=== PATIENT | female | born 1985 | race Caucasian/White ===

== ENCOUNTER 2017-01-08 06:57 | Inpatient (IN) | payer OTHER ==
[2017-01-08] MEDS ORDERED: ceFAZolin 2 GM in SODIUM CHLORIDE 0.9% 100 ML IVPB ONE (07:11)
[2017-01-08] MEDS ORDERED: CITRIC ACID-SODIUM CITRATE 15 ML CUP PO ONE (07:11)
[2017-01-08] MEDS ORDERED: KETOROLAC 30 MG/ML 1 ML VIAL ONE (07:23)
[2017-01-08] MEDS ORDERED: ONDANSETRON 4 MG/2 ML VIAL ONE (07:23)
[2017-01-08] MEDS ORDERED: fentaNYL (PF) 50 MCG/ML 2 ML AMP ONE (07:23)
[2017-01-08] MEDS ORDERED: NALBUPHINE 10 MG/ML AMPUL ONE (07:23)
[2017-01-08] MEDS ORDERED: OXYTOCIN 10 UNIT/ML 1 ML VIAL IM ONE (07:23)
[2017-01-08] MEDS ORDERED: MORPHINE SULFATE (PF) 0.3 MG/0.3 ML SYR ONE (07:23)
[2017-01-08] MEDS ORDERED: SIMETHICONE 80 MG CHEWABLE PO PRN (08:08)
[2017-01-08] MEDS ORDERED: ONDANSETRON 4 MG/2 ML VIAL IVP PRN (08:08)
[2017-01-08] MEDS ORDERED: NALOXONE 0.4 MG/ML 10 ML VIAL IVP PRN (08:08)
[2017-01-08] MEDS ORDERED: Acetaminophen-Codeine 300-30mg TAB PO PRN ×2 (08:08)
[2017-01-08] MEDS ORDERED: ACETAMINOPHEN TAB 325 MG TAB PO PRN (08:08)
[2017-01-08] MEDS ORDERED: METOCLOPRAMIDE 5 MG/ML 2 ML VIAL IVP PRN (08:08)
[2017-01-08] MEDS ORDERED: diphenhydrAMINE 25 MG CAP PO PRN (08:08)
[2017-01-08] MEDS ORDERED: ZOLPIDEM 5 MG TAB PO PRN (08:08)
--- NOTE | 2017-01-08 08:14 | P.HPOB ---
History of Present Illness H&P Date: 01/08/17 Chief Complaint: Vaginal bleeding This patient is a pleasant 31-year-old 3 para 1 female estimated date of confinement 01/19/2017 estimated gestational age 38-2/7 weeks who presents to labor and delivery with complaints of onset of vaginal bleeding at 5:30 this morning. Patient states she had a copious amount of bleeding in bed and then immediately came to the hospital. Patient's care has been uncomplicated. She previous section however last week she decided to proceed with a repeat . Review of Systems Constitutional: Denies chills, Denies fever Cardiovascular: Denies chest pain, Denies shortness of breath Respiratory: Denies cough Gastrointestinal: Reports heartburn Genitourinary: Reports as per HPI Menstruation: Reports amenorrhea Musculoskeletal: Denies myalgias Integumentary: Denies pruritus, Denies rash Neurological: Denies numbness, Denies weakness Past Medical History Past Medical History: Asthma Additional Past Medical History / Comment(s): hemorrhoids History of Any Multi-Drug Resistant Organisms: None Reported Past Surgical History: Section Past Anesthesia/Blood Transfusion Reactions: No Reported Reaction Past Psychological History: Anxiety Smoking Status: Former smoker Past Alcohol Use History: None Reported Additional Past Alcohol Use History / Comment(s): smoker 17 years <1/2 ppd quit 2015 Past Drug Use History: None Reported - Past Family History Mother Family Medical History: No Reported History Medications and Allergies Home Medications Medication Instructions Recorded Confirmed Type No Known Home Medications [No 01/07/17 01/07/17 History Known Home Medications] Allergies Allergy/AdvReac Type Severity Reaction Status Date / Time No Known Allergies Allergy Verified 01/07/17 14:50 Exam - OBG Physical Exam Abdomen: bowel sounds normal, no diffuse tenderness, no bruit present, no guarding noted, no hepatomegaly, no splenomegaly, no mass Vulva: both: normal Vagina: Speculum exam shows a large amount of watery bloody fluid. Cervix is closed Cervix: no lesion, no discharge Uterus: enlarged Assessment and Plan (1) Third trimester Narrative/Plan: This is a pleasant 31-year-old 3 para 1 female 38-2/7 weeks gestation with sudden onset of copious vaginal bleeding. heart tones are reassuring at this time but due to my concern for possible placental abruption proceed with immediate delivery by repeat section. Patient does understand the surgery and risks including risks of infection, bleeding, possible injury to bowel, bladder, vessels, and other organs. Patient understands risk of DVT and pulmonary embolism. All the patient's questions are answered and a written consent is obtained. Status: Acute (2) Vaginal bleeding in Status: Acute (3) Previous section complicating Status: Acute
--- NOTE | 2017-01-08 08:20 | P.OP ---
Date of Procedure: 01/08/17 Preoperative Diagnosis: #1: 38-2/7 week . #2: Vaginal bleeding, possible placental abruption. #3: Previous section. Postoperative Diagnosis: #1: Same. #2: Large placental abruption Procedure(s) Performed: Emergent repeat low transverse section Anesthesia: spinal Surgeon: David Goodson Candy Feeder #1: [address] Estimated Blood Loss (ml): 800 Pathology: other (Placenta) Condition: stable Disposition: floor Indications for Procedure: Please see dictated H&P for intimate details of this patient's admission. Brief summary this pleasant 31-year-old 3 para 1 female 38-2/7 weeks gestation admitted to labor and delivery vaginal bleeding and suspected placental abruption patient previous section at this time are recommended proceed with immediate delivery by repeat section.'s patient understands this surgery and risks. Operative Findings: This is a viable female Apgars were 5 and 10 delivery time is 0735 hours. Infant did have spontaneous respirations and good cry however of note the fluid was bloody. There was approximately 8 cm clot noted upon entering the uterine cavity consistent with an abruption. Description of Procedure: This patient has a Morales catheter placed to straight drain. She is subsequently taken to the operating room where she sat up and spinal anesthetic is administered without incident. With an adequate level of anesthesia she has abdominal prep and drape. Scalpels taken in the previous Pfannenstiel incision is incised. A second scalpel is taken down to the fascia. Fascia scored with a scalpel. Fascial incision extended bilaterally using the Vargas scissors. Fascia is dissected off the rectus muscles sharply. Rectus muscles are and the peritoneum identified and entered sharply. Peritoneal incision extended superior and inferior without difficulty. Bladder blade is then placed. Bladder peritoneum was taken off the lower uterine segment with Metzenbaum scissors. Scalpels taken low transverse uterine incision is made. Hemostat is used to enter the uterine cavity immediately is loss of a large amount of bloody fluid. Also large clot approximately 8 cm in dimensions. 70 's head was guided through the incision with fundal pressure delivered. Mouth and nares are bulb suctioned for bloody fluid. There is a loose nuchal cord. Then delivery anterior posterior shoulder and rest this infant's body. This is a vigorous viable female infant Apgars are 5 and 10. After delivery of the infant the placenta is then manually extracted intact. Of note it is partially abrupted. Uterus is then externalized and uterine incision demarcated with Jo clamps. The uterine incision is then closed using 0 Vicryl running locked fashion in 2 layers. Added [id number] stitches are also placed for assured hemostasis. With this done the bladder peritoneum was reapproximated using a 3-0 Vicryl. Excess fluid is removed from the pelvis. Uterus tubes and ovaries appear normal for term gestation. Uterus placed back into the abdomen. Parietal peritoneum was then closed using 0 Vicryl running fashion. Rectus muscles reapproximated in 0 Vicryl interrupted fashion. Fascia is then closed using 0 PDS. Fascial incision is intact and hemostatic. Subcutaneous tissues and reapproximated using 3-0 Vicryl. Skin is and closed using arpit. A sterile dressing is then applied. All counts are correct 3. There are no complications. will go to special care for observation due to the bloody fluid and mother will go to her birthing suite in satisfactory condition.
[2017-01-08 08:23] LABS: Basophils % (A) 1 %; CH 28.7; CHCM 34.1; Eosinophils # (A) 0.1 k/uL (0-0.7); Eosinophils % (A) 1 %; HCT 35.4 % (34.0-46.0); HDW 3.54; HGB 11.7 gm/dL (11.4-16.0); Luc # (Auto) 0.17; Luc % (Auto) 2; Lymphocytes # (A) 1.6 k/uL (1.0-4.8); Lymphocytes % (A) 19 %; MCH 28.1 pg (25.0-35.0); MCHC 33.1 g/dL (31.0-37.0); MCV 84.8 fL (80.0-100.0); Mean Platelet Volume 8.4; Monocytes # (A) 0.6 k/uL (0-1.0); Monocytes % (A) 8 %; Neutrophils # (A) 5.9 k/uL (1.3-7.7); Neutrophils % (A) 70 %; Poikilocytosis Slight; RBC 4.18 m/uL (3.80-5.40); RDW 14.4 % (11.5-15.5); WBC 8.4 k/uL (3.8-10.6); WBC (Perox) 8.71
[2017-01-08] MEDS ORDERED: HYDROmorphone 1 MG/ML 1 ML SYRINGE IVP STA (08:39)
[2017-01-08] MEDS ORDERED: NALOXONE 0.4 MG/ML 1 ML VIAL IV PRN (08:41)
[2017-01-08] MEDS: LACTATED RINGERS 1,000 ML IV SCH ×4 (09:29→19:34)
[2017-01-08] MEDS: OXYTOCIN 30 UNITS/500 ML NS 30 UNIT in SALINE 1 500ML.BAG IV SCH ×2 (10:27→15:57)
[2017-01-08] MEDS: diphenhydrAMINE 50 MG/ML 1 ML VIAL IVP PRN ×2 (12:48→23:38)
[2017-01-08] MEDS: ceFAZolin 2 GM in SODIUM CHLORIDE 0.9% 100 ML IVPB SCH ×2 (15:55→23:34)
[2017-01-08] MEDS: SENNOSIDES-DOCUSATE SODIUM 1 EACH TAB PO SCH (19:32)
[2017-01-08] MEDS: KETOROLAC 30 MG/ML 1 ML VIAL IVP PRN (23:25)
[2017-01-09] MEDS: OXYTOCIN 30 UNITS/500 ML NS 30 UNIT in SALINE 1 500ML.BAG IV SCH ×2 (01:58→01:59)
[2017-01-09] MEDS: LACTATED RINGERS 1,000 ML IV SCH ×2 (02:05→02:06)
[2017-01-09] MEDS: KETOROLAC 30 MG/ML 1 ML VIAL IVP PRN (05:04)
[2017-01-09] MEDS: IBUPROFEN 600 MG TAB PO PRN ×4 (05:11→22:44)
--- NOTE | 2017-01-09 06:45 | P.PNOBGPC ---
Subjective - Subjective Patient reports: Reports appetite normal, Reports voiding normally, Reports pain well controlled, Reports ambulating normally : doing well Objective - Vital Signs Latest vital signs: Vital Signs Temp Pulse Resp BP Pulse Ox 01/09/17 03:54 98.1 F 86 18 117/76 97 01/08/17 23:29 97.1 F L 89 14 129/80 01/08/17 16:00 98.0 F 81 16 113/69 99 01/08/17 12:00 98.3 F 71 16 115/61 100 01/08/17 10:25 69 16 139/61 01/08/17 10:15 98.2 F 69 16 113/61 01/08/17 09:40 74 16 117/69 01/08/17 09:10 72 16 121/71 01/08/17 08:55 63 16 108/55 01/08/17 08:38 62 16 116/73 01/08/17 08:23 76 16 111/69 100 01/08/17 08:08 98.2 F 67 16 109/61 100 Intake and Output 01/08/17 01/08/17 01/09/17 14:59 22:59 06:59 Output Total 150 393 0023 Balance -800 -600 -1550 Output: Urine 600 1550 Estimated Blood Loss 800 Other: # Voids 1 Weight 105.687 kg Patient Weight 01/09/17 06:59 Weight 105.687 kg - Exam Lungs: bilateral: normal Chest: Normal S1, Normal S2 Extremities: Present: normal Abdomen: Present: normal appearance, soft. Absent: distention, tenderness Incision: Present: normal, dry, intact Uterus: Present: normal, firm Assessment and Plan (1) Third trimester Narrative/Plan: Postoperative day #1. Patient is resting without new complaints. Vital signs are stable and she is afebrile. Uterus is firm nontender and her incision is intact and dry. CBC is pending at this time. Patient is tolerating regular diet and has been able to urinate without difficulty. Plan today is to encourage ambulation, check CBC, allow the patient to shower, and continue routine postoperative care. She is not having quite adequate relief with the Tylenol 3 so I am going to change her over to [place] is for pain control. Current Visit: Yes Status: Acute Code(s): Z33.1 - STATE, INCIDENTAL SNOMED Code(s): 06441592 (2) Vaginal bleeding in Current Visit: Yes Status: Acute Code(s): O46.90 - ANTEPARTUM HEMORRHAGE, UNSPECIFIED, UNSPECIFIED TRIMESTER SNOMED Code(s): 83145682 (3) Previous section complicating Current Visit: Yes Status: Acute Code(s): O34.219 - MATERNAL CARE FOR UNSP TYPE SCAR FROM PREVIOUS DEL SNOMED Code(s): 830016797
[2017-01-09 07:16] LABS: Basophils % (A) 0 %; CH 28.4; CHCM 33.2; Eosinophils # (A) 0.1 k/uL (0-0.7); Eosinophils % (A) 1 %; HCT 30.5 % (34.0-46.0); HDW 3.45; HGB 10.3 gm/dL (11.4-16.0); Luc # (Auto) 0.23; Luc % (Auto) 2; Lymphocytes # (A) 1.5 k/uL (1.0-4.8); Lymphocytes % (A) 15 %; MCHC 33.7 g/dL (31.0-37.0); MCV 86.1 fL (80.0-100.0); Mean Platelet Volume 7.6; Monocytes # (A) 0.6 k/uL (0-1.0); Monocytes % (A) 6 %; Neutrophils # (A) 7.8 k/uL (1.3-7.7); Neutrophils % (A) 76 %; Poikilocytosis Slight; RBC 3.55 m/uL (3.80-5.40); RDW 14.6 % (11.5-15.5); WBC 10.2 k/uL (3.8-10.6); WBC (Perox) 10.55
[2017-01-09] MEDS: HYDROcodone/APAP 5-325MG 1 EACH TAB PO PRN ×4 (07:56→21:11)
[2017-01-09] MEDS: SENNOSIDES-DOCUSATE SODIUM 1 EACH TAB PO SCH ×2 (07:57→21:11)
--- NOTE | 2017-01-09 09:42 | P.PN ---
Progress Note - Text Postoperative day 1 status post section under spinal anesthesia, and intrathecal morphine given for postoperative analgesia, patient doing well, there is no anesthesia related complications, further management as per her primary team
[2017-01-09] MEDS ORDERED: ZOLPIDEM 10 MG TAB PO PRN (19:07)
[2017-01-10] MEDS: HYDROcodone/APAP 5-325MG 1 EACH TAB PO PRN ×6 (02:07→21:37)
--- NOTE | 2017-01-10 05:59 | P.PNOBGPC ---
Subjective - Subjective Patient reports: Reports appetite normal, Reports voiding normally, Reports pain well controlled, Reports ambulating normally : doing well Objective - Vital Signs Latest vital signs: Vital Signs Temp Pulse Resp BP Pulse Ox 01/09/17 23:10 98.1 F 82 17 121/83 98 01/09/17 16:00 98.2 F 91 16 119/76 01/09/17 08:00 97.6 F 77 16 95/52 Intake and Output 01/09/17 01/09/17 01/10/17 14:59 22:59 06:59 Other: # Voids 2 - Exam Lungs: bilateral: normal Chest: Normal S1, Normal S2 Extremities: Present: normal Abdomen: Present: normal appearance, soft. Absent: distention, tenderness Incision: Present: normal, dry, intact Uterus: Present: normal, firm - Labs Labs: Abnormal Lab Results - Last 24 Hours (Table) 01/09/17 Range/Units 07:01 RBC 3.55 L (3.80-5.40) m/uL Hgb 10.3 L (11.4-16.0) gm/dL Hct 30.5 L (34.0-46.0) % Neutrophils # 7.8 H (1.3-7.7) k/uL Assessment and Plan (1) Third trimester Narrative/Plan: Post day #2. Patient is resting without new complaints. She did have difficulty with pain issues yesterday was changed over to oral [place]. Vital signs are stable she is afebrile. Incision is intact and dry. CBC yesterday was normal. Patient is tolerating regular diet, ambulating, urinating without difficulty. My impression is a normal course. Plan is to continue routine care discharge home later today or tomorrow morning. Current Visit: Yes Status: Acute Code(s): Z33.1 - STATE, INCIDENTAL SNOMED Code(s): 04790598 (2) Vaginal bleeding in Current Visit: Yes Status: Acute Code(s): O46.90 - ANTEPARTUM HEMORRHAGE, UNSPECIFIED, UNSPECIFIED TRIMESTER SNOMED Code(s): 60920963 (3) Previous section complicating Current Visit: Yes Status: Acute Code(s): O34.219 - MATERNAL CARE FOR UNSP TYPE SCAR FROM PREVIOUS DEL SNOMED Code(s): 546218318
[2017-01-10] MEDS: IBUPROFEN 600 MG TAB PO PRN ×4 (06:11→23:29)
[2017-01-10] MEDS: SENNOSIDES-DOCUSATE SODIUM 1 EACH TAB PO SCH ×2 (08:35→19:55)
[2017-01-10 08:42] VITALS: RESP 16
[2017-01-11 00:28] VITALS: TEMP 98.4
[2017-01-11] MEDS: HYDROcodone/APAP 5-325MG 1 EACH TAB PO PRN ×3 (02:40→10:57)
--- NOTE | 2017-01-11 05:49 | P.PNOBGPC ---
Subjective - Subjective Patient reports: Reports appetite normal, Reports voiding normally, Reports pain well controlled, Reports ambulating normally : doing well Objective - Vital Signs Latest vital signs: Vital Signs Temp Pulse Resp BP Pulse Ox 01/11/17 00:00 98.4 F 84 16 130/87 01/10/17 16:00 97.5 F L 89 16 128/68 96 01/10/17 08:39 97.6 F 92 16 130/77 Intake and Output 01/10/17 01/10/17 01/11/17 14:59 22:59 06:59 Intake Total 481 Balance 481 Intake: Oral 480 Blood Product 1 Other: # Voids 1 1 2 - Exam Lungs: bilateral: normal Chest: Normal S1, Normal S2 Extremities: Present: normal Abdomen: Present: normal appearance, soft. Absent: distention, tenderness Incision: Present: normal, dry, intact Uterus: Present: normal, firm Assessment and Plan (1) Third trimester Narrative/Plan: Postoperative day #3. Patient is resting without complaints. Vital signs are stable she is afebrile. Uterus is firm nontender and her incision is intact and dry. My impression is a normal postoperative course. Plan is to continue routine care discharge home later today. Current Visit: Yes Status: Acute Code(s): Z33.1 - STATE, INCIDENTAL SNOMED Code(s): 57312980 (2) Vaginal bleeding in Current Visit: Yes Status: Acute Code(s): O46.90 - ANTEPARTUM HEMORRHAGE, UNSPECIFIED, UNSPECIFIED TRIMESTER SNOMED Code(s): 39019734 (3) Previous section complicating Current Visit: Yes Status: Acute Code(s): O34.219 - MATERNAL CARE FOR UNSP TYPE SCAR FROM PREVIOUS DEL SNOMED Code(s): 775707554
--- NOTE | 2017-01-11 05:50 | P.DS ---
Providers Date of admission: 01/08/17 07:08 Expected date of discharge: 01/11/17 Attending physician: David Goodson - Discharge Diagnosis(es) (1) Third trimester Current Visit: Yes Status: Acute (2) Vaginal bleeding in Current Visit: Yes Status: Acute (3) Previous section complicating Current Visit: Yes Status: Acute Hospital Course: Please see dictated H&P for intimate details of this patient's admission. Brief summary this is a pleasant 31-year-old 3 para 1 female 38-4/7 weeks gestation who is admitted to labor and delivery with placental abruption. Patient's subsequent goes under a repeat low transverse section for viable female infant. Please see dictated delivery note. patient was felt to be stable for discharge home on postoperative day #3 follow up with me in 1 week. Procedures: Repeat low transverse section Patient Condition at Discharge: Good Plan - Discharge Summary New Discharge Prescriptions: HYDROcodone/APAP 5-325MG [[place] 5-325] 1 - 2 each PO Q4HR PRN #40 tab PRN Reason: Pain scale 1-5 Ibuprofen [Motrin] 600 mg PO Q6HR PRN #40 tab PRN Reason: Mild Pain Or Fever >= 100.5 Discharge Medication List HYDROcodone/APAP 5-325MG [[place] 5-325] 1 - 2 each PO Q4HR PRN #40 tab 01/10/17 [ Rx] Ibuprofen [Motrin] 600 mg PO Q6HR PRN #40 tab 01/10/17 [Rx] Follow up Appointment(s)/Referral(s): David Goodson MD [STAFF PHYSICIAN] - 01/17/17 1:30 pm (Patient also has a visit on February 26 at 9:15 AM.) Patient Instructions/Handouts: (DC) Activity/Diet/Wound Care/Special Instructions: No heavy lifting or strenuous activity for 6 weeks. No intercourse reining per vagina for 6 weeks. Please call if any fever, chills, excessive vaginal bleeding, and/or abdominal pain. Discharge Disposition: HOME SELF-CARE
[2017-01-11 08:39] VITALS: BP 130/82; PULSE 85
[2017-01-11] MEDS: SENNOSIDES-DOCUSATE SODIUM 1 EACH TAB PO SCH (10:59)
== END 2017-01-11 13:30 | disposition home or self-care (01) | DRG 766 ==
LOC: FBPOP 06:57 → 4FBP 07:08
PROVIDERS: ADMIT Obstetrics & Gynecology; ATTEND Obstetrics & Gynecology
PROC: 10D00Z1 Extraction of Products of Conception, Low, Open Approach (ICD-10-PCS; principal; 2017-01-08 07:15)
DX: O45.93 Premature separation of placenta, unspecified, third trimester (principal); Z87.891 Personal history of nicotine dependence; Z37.0 Single live birth; O34.211 Maternal care for low transverse scar from previous cesarean delivery; Z3A.38 38 weeks gestation of pregnancy
CPT/HCPCS: 85025; 86850; 86900; 86901; 88307

== ENCOUNTER → 2018-10-24 | Outpatient (CLI) | payer OTHER ==
[2018-10-24 12:46] LABS: HCT 33.6 % (34.0-46.0); HGB 11.5 gm/dL (11.4-16.0); MCH 29.6 pg (25.0-35.0); MCHC 34.2 g/dL (31.0-37.0); MCV 86.5 fL (80.0-100.0); Mean Platelet Volume 7.6; Platelet Count 172 k/uL (150-450); RBC 3.89 m/uL (3.80-5.40); WBC 7.4 k/uL (3.8-10.6)
== END | disposition home or self-care (01) ==
LOC: LABWHC1 10:33
PROVIDERS: ATTEND Obstetrics & Gynecology
DX: Z34.82 Encounter for supervision of other normal pregnancy, second trimester (principal); Z3A.00 Weeks of gestation of pregnancy not specified
CPT/HCPCS: 36415; 82950; 85027

== ENCOUNTER 2019-01-24 16:44 | Inpatient (IN) | payer OTHER ==
[2019-01-24] MEDS ORDERED: LACTATED RINGERS 1,000 ML IV SCH (18:15)
[2019-01-24] MEDS ORDERED: LACTATED RINGERS 1,000 ML IV ONE (18:15)
[2019-01-24] MEDS ORDERED: CITRIC ACID-SODIUM CITRATE 15 ML CUP PO ONE (19:27)
[2019-01-24] MEDS ORDERED: ceFAZolin IN SWFI 2 GM/20 ML SYRINGE IVP ONE (19:27)
[2019-01-24 19:42] LABS: Basophils % (A) 0 %; Eosinophils # (A) 0.1 k/uL (0-0.7); Eosinophils % (A) 1 %; HCT 37.3 % (34.0-46.0); HGB 12.4 gm/dL (11.4-16.0); Lymphocytes # (A) 1.9 k/uL (1.0-4.8); Lymphocytes % (A) 18 %; MCHC 33.4 g/dL (31.0-37.0); Mean Platelet Volume 7.9; Monocytes # (A) 0.5 k/uL (0-1.0); Monocytes % (A) 5 %; Neutrophils # (A) 8.1 k/uL (1.3-7.7); Neutrophils % (A) 76 %; Platelet Count 208 k/uL (150-450); RBC 4.44 m/uL (3.80-5.40); RDW 14.2 % (11.5-15.5); WBC 10.7 k/uL (3.8-10.6)
[2019-01-24] MEDS ORDERED: KETOROLAC 30 MG/ML 1 ML VIAL ONE (19:52)
[2019-01-24] MEDS ORDERED: MIDAZOLAM 2 MG/2 ML VIAL ONE (19:52)
[2019-01-24] MEDS ORDERED: NALBUPHINE 10 MG/ML (1 ML AMP) ONE (19:52)
[2019-01-24] MEDS ORDERED: OXYTOCIN 10 UNIT/ML 1 ML VIAL ONE (19:52)
[2019-01-24] MEDS ORDERED: MORPHINE SULFATE (PF) 0.3 MG/0.3 ML SYR ONE (19:52)
[2019-01-24] MEDS ORDERED: ONDANSETRON 4 MG/2 ML VIAL ONE (19:52)
[2019-01-24] MEDS ORDERED: PHENYLEPHRINE-0.9% NACL SYG 1 MG/10 ML SYRINGE ONE (19:52)
[2019-01-24] MEDS ORDERED: KETOROLAC 30 MG/ML 1 ML VIAL IVP PRN (20:42)
[2019-01-24] MEDS ORDERED: NALOXONE 0.4 MG/ML 1 ML VIAL IV PRN (20:42)
[2019-01-24] MEDS ORDERED: ZOLPIDEM 5 MG TAB PO PRN (20:42)
[2019-01-24] MEDS ORDERED: METOCLOPRAMIDE 5 MG/ML 2 ML VIAL IVP PRN (20:42)
[2019-01-24] MEDS ORDERED: ACETAMINOPHEN TAB 325 MG TAB PO PRN (20:42)
[2019-01-24] MEDS ORDERED: ONDANSETRON 4 MG/2 ML VIAL IVP PRN (20:42)
[2019-01-24] MEDS ORDERED: diphenhydrAMINE 25 MG CAP PO PRN (20:42)
[2019-01-24] MEDS ORDERED: diphenhydrAMINE 50 MG/ML 1 ML VIAL IVP PRN ×3 (20:42→21:00)
[2019-01-24] MEDS ORDERED: diphenhydrAMINE 50 MG CAP PO PRN (20:42)
--- NOTE | 2019-01-24 20:56 | P.HPOB ---
History of Present Illness H&P Date: 01/24/19 Chief Complaint: Intrauterine : Labor: Previous sections: Family planning Candace is a 33-year-old at 38 weeks 4 days gestation who is álvaro every 2 minutes making some cervical change and is scheduled for a repeat transverse section with tubal ligation. Risks/benefits/ alternatives reviewed with the patient in detail and all questions were answered for her prior to proceeding to the operating room. Her course otherwise was unremarkable and she is feeling well this time. She denies any other medical problems. Pertinent labs include O+ blood type Rh antibody was negative. Rubella is however nonimmune, hepatitis she surface antigen and RPR were negative, GBS was positive. She does have a category 1 tracing and is otherwise beyond the contractions feeling well. On physical exam vital signs are stable and afebrile. Heart regular, lungs clear, extremities without pain. Abdomen soft nontender was gravid uterus noted. Past Medical History Past Medical History: Asthma Additional Past Medical History / Comment(s): hemorrhoids History of Any Multi-Drug Resistant Organisms: None Reported Past Surgical History: Section Past Anesthesia/Blood Transfusion Reactions: No Reported Reaction Smoking Status: Never smoker - Past Family History Mother Family Medical History: No Reported History Medications and Allergies Home Medications Medication Instructions Recorded Confirmed Type Acetaminophen Tab [Tylenol] 2 01/24/19 History Allergies Allergy/AdvReac Type Severity Reaction Status Date / Time No Known Allergies Allergy Verified 01/24/19 17:20 Exam Osteopathic Statement: *. No significant issues noted on an osteopathic structural exam other than those noted in the History and Physical/Consult. Vital Signs Temp Pulse Resp BP Pulse Ox 01/24/19 17:24 98.6 F 91 20 146/77 98 Intake and Output 01/24/19 01/24/19 01/24/19 06:59 14:59 22:59 Other: Weight 105.687 kg - OBG Physical Exam Breast: both: normal (no masses) Abdomen: bowel sounds normal, no diffuse tenderness, no bruit present, no guarding noted, no hepatomegaly, no splenomegaly, no mass Vulva: both: normal Vagina: normal moisture, no discharge Cervix: no lesion, no discharge Uterus: normal size, normal contour Adnexa: both: normal Anus/Rectum: normal perianal skin, no rectal mass, no hemorrhoids, heme negative Results Result Diagrams: 01/24/19 18:00 Abnormal Lab Results - Last 24 Hours (Table) 01/24/19 Range/Units 18:00 WBC 10.7 H (3.8-10.6) k/uL Neutrophils # 8.1 H (1.3-7.7) k/uL
--- NOTE | 2019-01-24 20:59 | P.OP ---
Date of Procedure: 01/24/19 Preoperative Diagnosis: Intrauterine at term: Previous sections: Family planning Postoperative Diagnosis: Same Procedure(s) Performed: Repeat low-transverse section with tubal occlusion with Filshie clips Anesthesia: spinal Surgeon: Waqar Miles Speech Teacher #1: Adali Angela Estimated Blood Loss (ml): 500 IV fluids (ml): 700 Urine output (ml): 150 Pathology: none sent Condition: stable Disposition: floor Operative Findings: Female scores of 7 and 9 at one and 5 minutes respectively and the weight was 9 lbs. 3 oz. Description of Procedure: Patient was taken to the operating suite where a spinal anesthetic was found to be adequate. She was prepped and draped in the normal sterile fashion and placed in dorsal supine position with leftward tilt. Initially a Pfannenstiel skin incision was made and this incision was then carried through to the underlying layer of the fascia with the second knife. Fascia was then nicked in the midline and this opening was extended laterally with Vargas scissors. Superior and inferior aspect of this incision were then grasped tented up and bluntly and sharply dissected off the rectus muscles. Rectus muscles were then divided the midline and sharp dissection the peritoneum was made. This opening was then extended superiorly and inferiorly with good visualization of both bowel bladder. Bladder blade was then placed and the bladder flap identified. It was entered sharply with Metzenbaum scissors and carried across face uterus was same. Bladder was then bluntly dissected out of the operative field. Knife was then used to incise uterus this opening was extended bluntly. Head was then atraumatically delivered followed by shoulders. Mouth nares were then bulb suctioned and once baby was fully delivered umbilical cord was clamped cut usual fashion. Nursery personnel was then present to assume care. Placenta was then delivered intact and Pitocin was added to the IV. Uterus was then exteriorized cleared of clots and debris and closed in 1 layer with 0 Vicryl suture. Once excellent hemostasis was noted, this clips were applied 2 cm from uterine cornu bilaterally and blood and debris was suctioned the posterior cul- de-sac. Uterus was then reinserted into the abdomen and peritoneal layer was reapproximated. Fascial layer was then closed with 0 Vicryl suture. One layer of 3-0 Vicryl was placed in deep subcuticular tissues and the skin was then closed with 3-0 Vicryl subcuticularly. Overall patient tolerated surgery very well. Sponge, lap, needle counts were all correct 2. Patient was then taken to the recovery room in stable and satisfactory condition.
[2019-01-24] MEDS ORDERED: MEASLES-MUMPS-RUBELLA VACC/PF 12,500 UNIT/0.5 ML VIAL SQ ONE (21:00)
[2019-01-24] MEDS ORDERED: IBUPROFEN 600 MG TAB PO PRN (21:00)
[2019-01-24 21:57] VITALS: BMI 44.0
[2019-01-25] MEDS: LACTATED RINGERS 1,000 ML IV SCH ×2 (01:08→05:11)
--- NOTE | 2019-01-25 06:03 | P.PN ---
Progress Note - Text Progress Note Date: 01/25/19 Postop day 1 from . Patient has spinal with Duramorph placed last night. She has had return of lower extremity function. Denies any lower extremity paresthesia or weakness. Minimal pruritus. Required minimal when necessary medications. Likely be discharged later today or the following day. She has had return of bladder and bowel function as well.
[2019-01-25] MEDS: SENNOSIDES-DOCUSATE SODIUM 1 EACH TAB PO SCH ×4 (08:04→20:19)
[2019-01-25 08:56] LABS: Basophils % (A) 0 %; Eosinophils # (A) 0.1 k/uL (0-0.7); Eosinophils % (A) 1 %; HCT 35.4 % (34.0-46.0); HGB 11.7 gm/dL (11.4-16.0); Lymphocytes # (A) 1.7 k/uL (1.0-4.8); Lymphocytes % (A) 16 %; MCH 28.4 pg (25.0-35.0); Mean Platelet Volume 8.4; Monocytes # (A) 0.6 k/uL (0-1.0); Monocytes % (A) 6 %; Neutrophils # (A) 8.1 k/uL (1.3-7.7); Neutrophils % (A) 76 %; Platelet Count 168 k/uL (150-450); RBC 4.12 m/uL (3.80-5.40); RDW 14.6 % (11.5-15.5); WBC 10.7 k/uL (3.8-10.6)
[2019-01-25] MEDS: HYDROcodone/APAP 7.5-325MG 1 EACH TAB PO PRN ×2 (10:56→18:06)
--- NOTE | 2019-01-25 12:53 | P.PNOBGPC ---
Subjective - Subjective Principal diagnosis: Postop day 1 Interval history: Doing very well. She is involuting, voiding and she is tolerating her diet. She voices no complaints. Patient reports: Reports appetite normal, Reports voiding normally, Reports pain well controlled, Reports ambulating normally : doing well Objective - Vital Signs Latest vital signs: Vital Signs Temp Pulse Resp BP Pulse Ox 01/25/19 12:00 98.9 F 80 18 124/69 96 01/25/19 08:00 98.6 F 80 18 97/60 96 01/25/19 04:00 97.8 F 83 16 125/72 96 01/25/19 00:00 98.1 F 78 16 124/71 98 01/24/19 22:52 82 16 110/62 01/24/19 22:23 76 16 102/59 01/24/19 21:52 85 16 116/66 01/24/19 21:37 75 16 114/60 01/24/19 21:22 76 16 105/60 01/24/19 21:07 91 16 112/57 01/24/19 20:50 98.3 F 79 16 127/60 98 01/24/19 19:15 98.0 F 94 16 134/77 01/24/19 17:24 98.6 F 91 20 146/77 98 Intake and Output 01/24/19 01/25/19 01/25/19 22:59 06:59 14:59 Output Total 500 600 Balance -500 -600 Output: Urine 600 Uretheral (Morales) 500 Estimated Blood Loss 500 Other: Weight 105.687 kg - Exam Lungs: bilateral: normal Chest: Normal S1, Normal S2 Extremities: Present: normal Abdomen: Present: normal appearance, soft. Absent: distention, tenderness Incision: Present: normal, dry, intact Uterus: Present: normal, firm - Labs Labs: Abnormal Lab Results - Last 24 Hours (Table) 01/24/19 01/25/19 Range/Units 18:00 08:06 WBC 10.7 H 10.7 H (3.8-10.6) k/uL Neutrophils # 8.1 H 8.1 H (1.3-7.7) k/uL
[2019-01-25] MEDS: IBUPROFEN 600 MG TAB PO PRN ×2 (15:54→22:22)
[2019-01-25 20:49] VITALS: RESP 16; TEMP 97.5
[2019-01-26] MEDS: HYDROcodone/APAP 7.5-325MG 1 EACH TAB PO PRN ×2 (01:16→07:21)
[2019-01-26] MEDS: SIMETHICONE 80 MG CHEWABLE PO PRN ×2 (01:21→07:39)
[2019-01-26] MEDS: IBUPROFEN 600 MG TAB PO PRN ×2 (04:11→10:14)
--- NOTE | 2019-01-26 06:41 | P.PNOBGPC ---
Subjective - Subjective Patient reports: Reports appetite normal, Reports voiding normally, Reports pain well controlled, Reports ambulating normally : doing well Objective - Vital Signs Latest vital signs: Vital Signs Temp Pulse Resp BP Pulse Ox 01/25/19 23:39 97.5 F L 71 16 110/66 97 01/25/19 20:00 97.5 F L 78 16 110/64 97 01/25/19 16:00 98.3 F 88 18 116/61 98 01/25/19 12:00 98.9 F 80 18 124/69 96 01/25/19 08:00 98.6 F 80 18 97/60 96 Intake and Output 01/25/19 01/25/19 01/26/19 14:59 22:59 06:59 Output Total 300 Balance -300 Output: Urine 300 Other: # Voids 1 1 1 - Exam Lungs: bilateral: normal Chest: Normal S1, Normal S2 Extremities: Present: normal Abdomen: Present: normal appearance, soft. Absent: distention, tenderness Incision: Present: normal, dry, intact Uterus: Present: normal, firm - Labs Labs: Abnormal Lab Results - Last 24 Hours (Table) 01/25/19 Range/Units 08:06 WBC 10.7 H (3.8-10.6) k/uL Neutrophils # 8.1 H (1.3-7.7) k/uL Assessment and Plan Assessment: Postoperative day #2. Patient is resting without complaints and wishes to go home. Vital signs are stable and she is afebrile. Uterus is firm nontender and her incision is intact and dry. Impression is a normal postoperative course. Plan is to continue routine postoperative care discharge home later today per patient request. (1) Previous section complicating Current Visit: No Status: Acute Code(s): O34.219 - MATERNAL CARE FOR UNSP TYPE SCAR FROM PREVIOUS DEL SNOMED Code(s): 300975231
[2019-01-26 08:01] VITALS: BP 109/68; PULSE 66
== END 2019-01-26 11:30 | disposition home or self-care (01) | DRG 785 ==
LOC: FBPOP 16:44 → 4FBP 19:23
PROVIDERS: ADMIT Obstetrics & Gynecology; ATTEND Obstetrics & Gynecology
PROC: 0UL70CZ Occlusion of Bilateral Fallopian Tubes with Extraluminal Device, Open Approach (ICD-10-PCS; 2019-01-24)
PROC: 3E0134Z Introduction of Serum, Toxoid and Vaccine into Subcutaneous Tissue, Percutaneous Approach (ICD-10-PCS; 2019-01-24)
PROC: 10D00Z1 Extraction of Products of Conception, Low, Open Approach (ICD-10-PCS; principal; 2019-01-24 20:08)
DX: O34.211 Maternal care for low transverse scar from previous cesarean delivery (principal); O75.82 Onset (spontaneous) of labor after 37 completed weeks of gestation but before 39 completed weeks gestation, with delivery by (planned) cesarean section; O99.52 Diseases of the respiratory system complicating childbirth; J45.909 Unspecified asthma, uncomplicated; N85.8 Other specified noninflammatory disorders of uterus; O99.824 Streptococcus B carrier state complicating childbirth; L29.9 Pruritus, unspecified; Z3A.38 38 weeks gestation of pregnancy; Z37.0 Single live birth; Z30.2 Encounter for sterilization; Z87.19 Personal history of other diseases of the digestive system; Z23 Encounter for immunization
CPT/HCPCS: 59025; 85025; 86850; 86900; 86901; 99213